=== PATIENT | male | born 1980 | race Hispanic/Latino ===

== ENCOUNTER 2019-12-11 12:37 | Emergency (ER) | payer OTHER ==
[2019-12-11] MEDS ORDERED: KETOROLAC 30 MG/ML INJ ONE (13:13)
[2019-12-11 13:25] LABS: Urine Blood TRACE (NEG); Urine Glucose NEGATIVE (NEG); Urine Protein NEGATIVE (NEG); Urine Specific Gravity 1.015 (1.005-1.030)
[2019-12-11 13:29] LABS: Urine Bacteria NONE SEEN /HPF (NONE SEEN); Urine Culture Reflex Order NOT NEEDED; Urine RBC <5 /HPF (NONE SEEN)
--- NOTE | 2019-12-11 13:53 | ER ---
Nurse's Notes [facility] Name: Justice Trevizo Age: 38 yrs Sex: Male : 1980 Arrival Date: 12/11/2019 Time: 12:39 Bed 16 Private MD: Diagnosis: Low back pain Presentation: 12/10 12:48 Chief complaint: Patient states: low back pain "for a while". Pt denies known injury, aa5 denies nausea/vomiting/diarrhea. 12:48 Coronavirus screen: Proceed with normal triage. Patient denies a cough. Patient denies aa5 shortness of breath or difficulty breathing. Patient denies measured and/or subjective temperature greater than 100.4F prior to today's visit. Patient denies travel on a cruise ship or to a country the [facility] currently lists as an affected area. Patient denies contact with known and/or suspected case of COVID-19. Ebola Screen: Patient negative for fever greater than or equal to 101.5 degrees Fahrenheit, and additional compatible Ebola Virus Disease symptoms. Initial Sepsis Screen: Does the patient meet any 2 criteria? No. Patient's initial sepsis screen is negative. Does the patient have a suspected source of infection? No. Patient's initial sepsis screen is negative. Risk Assessment: Do you want to hurt yourself or someone else? Patient reports no desire to harm self or others. Onset of symptoms was 2019. 12:48 Method Of Arrival: Ambulatory aa5 12:48 Acuity: ADELIA 3 aa5 Historical: - Allergies: 12:48 No Known Allergies; aa5 - Home Meds: 12:48 None [Active]; aa5 - PMHx: 12:48 None; aa5 - PSHx: 12:48 Appendectomy; aa5 - Immunization history:: Adult Immunizations unknown. - Social history:: Smoking status: Patient reports the use of cigarette tobacco products, smokes one pack cigarettes per day. Screenin:50 Abuse screen: Denies threats or abuse. Nutritional screening: No deficits noted. rb1 Tuberculosis screening: No symptoms or risk factors identified. Fall Risk None identified. Assessment: 12:50 General: Appears in no apparent distress. comfortable, Behavior is calm, cooperative. rb1 Pain: Complains of pain in low back Pain currently is 8 out of 10 on a pain scale. Pain began x one week. Neuro: Level of Consciousness is awake, alert, obeys commands, Oriented to person, place, time, situation, Denies numbness and tingling. Cardiovascular: Capillary refill < 3 seconds is brisk in bilateral fingers. Respiratory: Airway is patent Respiratory effort is even, unlabored, Respiratory pattern is regular, symmetrical. GI: No signs and/or symptoms were reported involving the gastrointestinal system. : Reports burning with urination. Derm: Skin is pink, warm \\T\\ dry. Musculoskeletal: Range of motion: intact in all extremities. 13:50 Reassessment: Patient appears in no apparent distress at this time. Patient and/or rb1 family updated on plan of care and expected duration. Pain level reassessed. Patient is alert, oriented x 3, equal unlabored respirations, skin warm/dry/pink. Vital Signs: 12:48 BP 138 / 96; Pulse 100; Resp 16 S; Temp 99.1(O); Pulse Ox 99% on R/A; Weight 83.91 kg aa5 (R); Height 5 ft. 11 in. (180.34 cm) (R); Pain 8/10; 13:48 BP 137 / 91; Pulse 89; Resp 17; Pulse Ox 100% on R/A; rb1 12:48 Body Mass Index 25.80 (83.91 kg, 180.34 cm) aa5 ED Course: 12:39 Patient arrived in ED. ag5 12:48 Randall Leon PA is PHCP. cp 12:48 Wilfrid Will MD is Attending Physician. cp 12:48 Arm band placed on Patient placed in an exam room, on a stretcher. aa5 12:50 Patient has correct armband on for positive identification. Bed in low position. Call rb1 light in reach. Side rails up X 1. Pulse ox on. NIBP on. 12:54 Becca Cade, RN is Primary Nurse. rb1 12:57 Triage completed. aa5 13:23 Urine collected: clean catch specimen, clear. ca1 14:18 No provider procedures requiring assistance completed. Patient did not have IV access rb1 during this emergency room visit. Administered Medications: 13:13 Drug: TORadol 60 mg Route: IM; Site: left gluteus; rb1 13:28 Follow up: Response: No adverse reaction rb1 Outcome: 13:53 Discharge ordered by . cp 14:18 Patient left the ED. rb1 14:18 Discharged to home ambulatory. rb1 14:18 Condition: stable 14:18 Discharge instructions given to patient, Instructed on discharge instructions, follow up and referral plans. medication usage, Demonstrated understanding of instructions, follow-up care, medications, Prescriptions given X 3. Signatures: Bettye Meléndez, RN RN aa5 Randall Leon PA PA cp Barber, Rebecca, RN RN rb1 Brianda Monsalve RN RN ca1 Simran Trevizo 5
--- NOTE | 2019-12-11 13:53 | EDPHYS ---
Physician Documentation [facility] Name: Justice Trevizo Age: 38 yrs Sex: Male : 1980 Arrival Date: 12/11/2019 Time: 12:39 Bed 16 Private MD: ED Physician Wilfrid Will HPI: 12/10 13:05 This 38 yrs old Male presents to ER via Ambulatory with complaints of Low Back cp Pain. 13:05 The patient presents with pain that is acute, with no known mechanism of injury. cp 13:05 The symptoms are located in the low back. The pain does not radiate. cp 13:05 Onset: The symptoms/episode began/occurred for weeks. cp 13:05 Associated signs and symptoms: Pertinent negatives: abdominal pain, chest pain, cp constipation, dysuria, fever, incontinence, numbness, tingling, urinary retention, weakness. Historical: - Allergies: 12:48 No Known Allergies; aa5 - Home Meds: 12:48 None [Active]; aa5 - PMHx: 12:48 None; aa5 - PSHx: 12:48 Appendectomy; aa5 - Immunization history:: Adult Immunizations unknown. - Social history:: Smoking status: Patient reports the use of cigarette tobacco products, smokes one pack cigarettes per day. ROS: 13:10 Constitutional: Negative for body aches, chills, fever, poor PO intake. cp 13:10 Eyes: Negative for injury, pain, redness, and discharge. cp 13:10 ENT: Negative for drainage from ear(s), ear pain, sore throat, difficulty swallowing, difficulty handling secretions. 13:10 Cardiovascular: Negative for chest pain, palpitations. 13:10 Respiratory: Negative for cough, shortness of breath, wheezing. 13:10 Abdomen/GI: Negative for abdominal pain, vomiting, diarrhea, constipation, bowel incontinence. 13:10 Back: Positive for pain at rest, pain with movement, of the low back. 13:10 : Negative for urinary symptoms, difficulty urinating, bladder incontinence, testicular pain 13:10 Neuro: Negative for gait disturbance, numbness, tingling, weakness. 13:10 All other systems are negative. Exam: 13:15 Constitutional: The patient appears in no acute distress, alert, awake, non-toxic, well cp developed, well nourished. 13:15 Head/Face: Normocephalic, atraumatic. cp 13:15 Eyes: Periorbital structures: appear normal, Conjunctiva: normal, no exudate, no cp injection, Sclera: no appreciated abnormality, Lids and lashes: appear normal, bilaterally. 13:15 ENT: External ear(s): are unremarkable, Nose: is normal, Mouth: Lips: moist, Oral mucosa: moist, Posterior pharynx: Airway: no evidence of obstruction, patent. 13:15 Neck: ROM/movement: is normal, is supple, without pain, no range of motions limitations. 13:15 Chest/axilla: Inspection: normal. 13:15 Cardiovascular: Rate: normal, Rhythm: regular. 13:15 Respiratory: the patient does not display signs of respiratory distress, Respirations: normal, no use of accessory muscles, labored breathing, is not present. 13:15 Abdomen/GI: Exam negative for discomfort, distension, guarding, Inspection: abdomen appears normal. 13:15 Back: pain, that is moderate, of the low back area, ROM is normal, Straight leg raises: of both lower extremities does not illicit pain. 13:15 Neuro: Motor: moves all fours, strength is normal, Sensation: is normal, Gait: is cp steady, at a normal pace, without difficulty, Deep tendon reflexes are 2+ (normal) in the right patellar, right Achilles, left patellar and left Achilles. Vital Signs: 12:48 BP 138 / 96; Pulse 100; Resp 16 S; Temp 99.1(O); Pulse Ox 99% on R/A; Weight 83.91 kg aa5 (R); Height 5 ft. 11 in. (180.34 cm) (R); Pain 8/10; 13:48 BP 137 / 91; Pulse 89; Resp 17; Pulse Ox 100% on R/A; rb1 12:48 Body Mass Index 25.80 (83.91 kg, 180.34 cm) aa5 MDM: 12:54 Patient medically screened. cp 13:20 Differential diagnosis: strain, sciatica, Herniated disc UTI. cp 13:52 Data reviewed: vital signs, nurses notes, lab test result(s), and as a result, I will cp discharge patient. 13:53 Counseling: I had a detailed discussion with the patient and/or guardian regarding: the cp historical points, exam findings, and any diagnostic results supporting the discharge/admit diagnosis, lab results, the need for outpatient follow up, a family practitioner, to return to the emergency department if symptoms worsen or persist or if there are any questions or concerns that arise at home. 12/10 13:00 Order name: Urine Microscopic Only; Complete Time: 13:31 cp 12/10 13:31 Interpretation: Reviewed. 12/10 13:21 Order name: Urine Dipstick--Ancillary (enter results); Complete Time: 13:27 eb 12/10 13:27 Interpretation: Normal except: UBLD TRACE. 12/10 13:00 Order name: Urine Dipstick-Ancillary (obtain specimen); Complete Time: 13:24 cp Administered Medications: 13:13 Drug: TORadol 60 mg Route: IM; Site: left gluteus; rb1 13:28 Follow up: Response: No adverse reaction rb1 Disposition: 15:06 Co-signature as Attending Physician, Wilfrid Will MD. rn Disposition: 12/11/19 13:53 Discharged to Home. Impression: Low back pain. - Condition is Stable. - Discharge Instructions: Back Pain, Adult, Back Exercises. - Prescriptions for Cyclobenzaprine 10 mg Oral Tablet - take 1 tablet by ORAL route every 8 hours As needed; 20 tablet. Tramadol 50 mg Oral Tablet - take 1 tablet by ORAL route every 8 hours as needed; 12 tablet. Medrol (Ankur) 4 mg Oral Tablets, Dose Pack - take 1 tablet by ORAL route as directed - follow package instructions; 1 packet. - Medication Reconciliation Form, Thank You Letter, Antibiotic Education, Prescription Opioid Use form. - Follow up: Private Physician; When: 2 - 3 days; Reason: Recheck today's complaints. - Problem is new. - Symptoms have improved. Signatures: Dispatcher [employer] EDWilfrid Cochran MD MD rn Calderon, Audri, RN RN aa5 Randall Leon PA PA cp Barber, Rebecca, RN RN rb1 Corrections: (The following items were deleted from the chart) 14:18 13:53 12/11/2019 13:53 Discharged to Home. Impression: Low back pain. Condition is rb1 Stable. Forms are Medication Reconciliation Form, Thank You Letter, Antibiotic Education, Prescription Opioid Use. Follow up: Private Physician; When: 2 - 3 days; Reason: Recheck today's complaints. Problem is new. Symptoms have improved. cp
[2019-12-11 14:34] VITALS: BP 138/96; TEMP 99.1; O2SAT 99
== END 2019-12-11 14:18 | disposition home or self-care (01) ==
LOC: ER 12:37
DX: M54.5 Low back pain (principal); F17.210 Nicotine dependence, cigarettes, uncomplicated
CPT/HCPCS: 81003; 81015; 96372; 99284

== ENCOUNTER 2020-10-29 17:46 | Emergency (ER) | payer OTHER, SELFPAY ==
--- OUTSIDE RECORDS SUMMARY | 2020-10-29 17:54 | XMS REPORT | Continuity of Care Document ---
:1980 Author Organization [facility] t Address [address] [place] [address] Care Team Providers Name Role Phone Arie HARGROVE Primary Care Physician Bev Juarez Attending Clinician Problems This patient has no known problems. Allergies, Adverse Reactions, Alerts This patient has no known allergies or adverse reactions. Social History Social Habit Start Date Stop Date Quantity Comments Source History of tobacco Cigarette Smoker [place] use Yarsanism Cigarettes smoked 2019-07-15 2019-07-15 [place] current (pack per 00:00:00 00:00:00 Method) - Reported Tobacco use and 2019-07-15 2019-07-15 Never used [place] exposure 00:00:00 00:00:00 Yarsanism Alcohol intake 2019-07-15 2019-07-15 Ex-drinker [place] 00:00:00 00:00:00 (finding) Yarsanism Sex [birth year] At [birth year] [place] 00:00:00 00:00:00 Yarsanism Smoking Status Start Date Stop Date Source Current every day smoker 2019-07-15 00:00:00 Higinio hernandez Yarsanism Medications This patient has no known medications. Procedures This patient has no known procedures. Encounters Start End Encounter Admission Attending Care Care Encounter Source Date/Time Date/Time Type Type Clinicians Facility Department ID 2020-06-27 2020-06-27 Emergency Margaret Patel [id number] 18:29:00 22:16:00 Bev Andrade [id number] [place] [id number] [place] [id number] Results This patient has no known results.
--- NOTE | 2020-10-29 21:56 | ER ---
Nurse's Notes [facility] Name: Justice Rubio Age: 39 yrs Sex: Male : 1980 Arrival Date: 10/29/2020 Time: 17:49 Bed External Waiting Private MD: Soni Sargent Diagnosis: Presentation: 10/29 17:58 Chief complaint: Patient states: Blurred vision for 2 days. Dizzy and MORALES all day today. ll1 No fever. Coronavirus screen: Client denies travel out of the [place] in the last 14 days. headache, nausea, Client presents with at least one sign or symptom that may indicate coronavirus-19. Standard/surgical mask placed on the client. Ebola Screen: Patient denies travel to an Ebola-affected area in the 21 days before illness onset. Initial Sepsis Screen: Does the patient meet any 2 criteria? HR > 90 bpm. No. Patient's initial sepsis screen is negative. Does the patient have a suspected source of infection? Yes: Other: MORALES. Risk Assessment: Do you want to hurt yourself or someone else? Patient reports no desire to harm self or others. Onset of symptoms was October 28, 2020. 17:58 Method Of Arrival: Ambulatory ll1 17:58 Acuity: ADELIA 3 ll1 Historical: - Allergies: 18:00 No Known Allergies; ll1 - PMHx: 18:00 None; ll1 - PSHx: 18:00 Appendectomy; ll1 - Immunization history:: Flu vaccine is not up to date. - Social history:: Smoking status: Patient reports the use of cigarette tobacco products, smokes one-half pack cigarettes per day. Vital Signs: 17:58 BP 138 / 98; Pulse 118; Resp 17; Temp 98.3; Pulse Ox 97% ; Weight 86.18 kg; Height 5 ll1 ft. 11 in. (180.34 cm); Pain 8/10; 17:58 Body Mass Index 26.50 (86.18 kg, 180.34 cm) ll1 ED Course: 17:49 Patient arrived in ED. mr 17:50 Soni Sargent is Private Physician. mr 18:00 Triage completed. ll1 18:01 Arm band placed on. ll1 21:16 Rambo Chang, RN is Primary Nurse. em 21:16 Andres Mike, MEET is PHCP. pm1 21:16 Alcon Conley MD is Attending Physician. pm1 Administered Medications: No medications were administered Outcome: : Patient left the ED. sg Signatures: Misha Ruelas RN RN Amira Qiu mr ChangRambo RN RN em Andres Mike, COAL PICKER COAL PICKER pm1 Lena Alston RN RN 1
[2020-10-29 22:29] VITALS: BP 138/98; TEMP 98.3; O2SAT 97
== END 2020-10-29 21:55 | disposition left against medical advice (07) ==
LOC: ER 17:46
DX: H53.8 Other visual disturbances (principal); Z53.21 Procedure and treatment not carried out due to patient leaving prior to being seen by health care provider
CPT/HCPCS: 99281

== ENCOUNTER 2021-01-21 20:54 | Emergency (ER) | payer OTHER ==
[2021-01-21 21:26] LABS: Urine Blood Negative (Negative); Urine Glucose Negative (Negative); Urine Protein Negative (Negative); Urine Specific Gravity >=1.030 (1.005-1.030)
[2021-01-21 21:29] LABS: Absolute Lymphocytes (CBC) 2.1 K/uL (0.7-4.9); Basophils % 0.7 % (0-1.3); Hematocrit 44.5 % (39.6-49.0); Lymphocytes % 31.2 % (15.3-44.8); MPV 7.7 fL (7.6-11.3); RBC Red Blood Cell Count 5.31 M/uL (4.33-5.43)
[2021-01-21] MEDS ORDERED: WATER FOR INJ,STERILE 10 ML ONE (21:30)
[2021-01-21] MEDS ORDERED: ZIPRASIDONE MESYLA 20 MG/VIAL IM ONE (21:30)
[2021-01-21 21:45] LABS: Barbiturates NEGATIVE (NEGATIVE); Benzodiazepines POSITIVE (NEGATIVE); Cocaine POSITIVE (NEGATIVE); METHAMPHETAM NEGATIVE (NEGATIVE); Methadone POSITIVE (NEGATIVE); Opiates NEGATIVE (NEGATIVE); Phencyclidine NEGATIVE (NEGATIVE); THC Cannibis NEGATIVE (NEGATIVE)
[2021-01-21 21:47] LABS: Protime INR 1.15
[2021-01-21 21:48] LABS: ALT/SGPT 19 U/L (12-78); AST/SGOT 11 U/L (15-37); Alkaline Phosphatase 52 U/L (45-117); BUN Blood Urea Nitrogen 17 mg/dL (7-18); Bicarbonate 31 mmol/L (21-32); Bilirubin Direct < 0.1 mg/dL (0-0.2); Bilirubin Total 0.3 mg/dL (0.2-1.0); Glucose Level 103 mg/dL (74-106); Potassium 4.4 mmol/L (3.5-5.1); Protein, Total 7.9 g/dL (6.4-8.2); Sodium Level 142 mmol/L (136-145)
[2021-01-21] MEDS ORDERED: NICOTINE 21 MG/PAT TD ONE (23:26)
[2021-01-22] MEDS ORDERED: ZIPRASIDONE MESYLA 20 MG/VIAL IM ONE (04:38)
[2021-01-22] MEDS ORDERED: LORazepam 2 MG/ML VIAL ONE ×2 (04:38→04:41)
[2021-01-22] MEDS ORDERED: DIPHENHYDRAMINE 50 MG/ML VIAL ONE (04:50)
--- NOTE | 2021-01-22 07:41 | ER ---
Nurse's Notes [facility] Name: Justice Rubio Age: 40 yrs Sex: Male : 1980 Arrival Date: 01/21/2021 Time: 21:04 Bed 17 Private MD: Diagnosis: Suicidal ideations;Cocaine abuse;Abuse of other non-psychoactive substances;Other chronic pain-Methadone Maintence;Major depressive disorder, recurrent Presentation: 01/21 21:04 Chief complaint: Pt BIB EMS/PD for c/o hearing voices and SI. Pt denies specific plan, ad5 ED hold placed on pt by PD at this time. Pt reports recent of his best friend trigger for current c/o. Coronavirus screen: At this time, the client does not indicate any symptoms associated with coronavirus-19. Ebola Screen: No symptoms or risks identified at this time. Initial Sepsis Screen: Does the patient meet any 2 criteria? HR > 90 bpm. Does the patient have a suspected source of infection? No. Patient's initial sepsis screen is negative. Risk Assessment: Do you want to hurt yourself or someone else? Patient reports desire/thoughts of hurting themselves or someone else. Provider notified. Onset of symptoms is unknown. 21:04 Method Of Arrival: EMS ad5 21:04 Acuity: ADELIA 2 ad5 Triage Assessment: 21:08 General: Appears in no apparent distress. Behavior is cooperative, agitated, anxious. ad5 Pain: Denies pain. Historical: - Allergies: 21:07 No Known Allergies; ad5 - Home Meds: 21:07 Methadone unknown dose Oral [Active]; ad5 - Immunization history:: Adult Immunizations unknown. - Social history:: Smoking status: unknown Patient uses alcohol. Screenin:45 Abuse screen: Denies threats or abuse. Nutritional screening: No deficits noted. ea Tuberculosis screening: No symptoms or risk factors identified. Fall Risk None identified. Assessment: 21:44 General: Appears in no apparent distress. Behavior is calm, cooperative, appropriate ea for age. Pain: Denies pain. Neuro: Level of Consciousness is awake, alert, obeys commands, Oriented to person, place, time. Cardiovascular: Patient's skin is warm and dry. Respiratory: Airway is patent Respiratory effort is even, unlabored, Respiratory pattern is regular, symmetrical. Derm: Skin is pink, warm \\T\\ dry. 22:00 Reassessment: Pt appears agitated, refusal to change into hospital gown at this time. ad5 Pt belongings placed in bag and at bedside. Pt reoriented to plan of care by this RN and coroner forensic technician. ok for pt to remain in clothing and allow eval/tx while in ED at this time. Pt agreeable to plan of care at this time. Sitter remains at bedside. Will continue to monitor. 22:30 Reassessment: Patient appears in no apparent distress at this time. No changes from ad5 previously documented assessment. Patient and/or family updated on plan of care and expected duration. Pain level reassessed. 23:30 Reassessment: Pt resting comfortably in stretcher, bed low and locked, bedrails x 1. ad5 informed of pt need for nicotine patch. Pt denies other needs or c/o at this time. Resp with ease. Continued protocols in place for reported SI. NAD noted, will continue to monitor. 23:45 Reassessment: Patient and/or family updated on plan of care and expected duration. Pain ea level reassessed. Pt speaking with brigitte gaitan spoke to provider reported pt should be seen in patient. 01/22 01:00 Reassessment: Patient appears in no apparent distress at this time. Patient and/or ad5 family updated on plan of care and expected duration. Pain level reassessed. Patient denies pain at this time. 02:33 Reassessment: Patient and/or family updated on plan of care and expected duration. Pain ea level reassessed. Pt resting with eyes closed, respirations even and unlabored. Chest expansions even and symmetrical. 03:30 Reassessment: Patient and/or family updated on plan of care and expected duration. Pain ea level reassessed. Spoke with Brigette from [facility] gave nurse to nurse. 03:59 Reassessment: Spoke with Arianna at [facility], questions/concerns ad5 addressed. Arianna to call back regarding pt Covid test results prior to acceptance. 04:06 Reassessment: Patient and/or family updated on plan of care and expected duration. Pain ea level reassessed. Pt reported he was going to leave, states "I didn't hurt anyone and I am not staying here, I am not a criminal". Pt demanded IV be removed. PD called to facility. Pt stated " I am not going to stay they can arrest me". Pt became belligerent. Pushed ED staff out of the way. Pt left ED. 04:30 Reassessment: Pt back to room 17 in ED with PD escort. PD remains at bedside with RN x ad5 2 and coroner forensic technician. MD to bedside, pt again informed of ED hold and reoriented to plan of care. Pt changed into hospital gown at this time, belongings secured. Pt positioned for comfort in ED stretcher, warm blanket provided. Pt received IM medication at this time d/t increased agitation per MD orders. Sitter remains at bedside. Will continue to monitor. 05:30 Reassessment: Pt resting comfortably in ED stretcher with eyes closed, arouses to ad5 minimal stimuli. Resp even/unlabored. Bed low and locked, bedrails x 1. Sitter remains at bedside. NAD noted, will continue to monitor. 07:00 Reassessment: Patient appears in no apparent distress at this time. Patient and/or jd3 family updated on plan of care and expected duration. Pain level reassessed. pt resting in bed with even and unlabored respirations, appears comfortable with no signs of pain or distress at this time. sitter at bedside. Pain: Denies pain. Neuro: Level of Consciousness is awake, alert, obeys commands, Oriented to person, place, time. Cardiovascular: Patient's skin is warm and dry. Respiratory: Airway is patent Respiratory effort is even, unlabored, Respiratory pattern is regular, symmetrical. Derm: Skin is intact, Skin is dry, Skin is normal, Skin temperature is warm. 08:00 Reassessment: Patient appears in no apparent distress at this time. Patient and/or jd3 family updated on plan of care and expected duration. Pain level reassessed. Patient is alert, oriented x 3, equal unlabored respirations, skin warm/dry/pink. 08:26 Reassessment: diet tray offered to pt. pt reported to want to sleep. tray left on jd3 counter next bed when pt is wanting to eat. 09:00 Reassessment: Patient appears in no apparent distress at this time. Patient and/or jd3 family updated on plan of care and expected duration. Pain level reassessed. Patient is alert, oriented x 3, equal unlabored respirations, skin warm/dry/pink. Vital Signs: 06/14 21:04 BP 126 / 90; Pulse 105; Resp 18; Temp 97.8; Pulse Ox 100% on R/A; Weight 89.81 kg; ad5 Height 5 ft. 11 in. (180.34 cm); Pain 0/10; 21:04 Body Mass Index 27.62 (89.81 kg, 180.34 cm) ad5 ED Course: 21:04 Patient arrived in ED. ad5 21:05 Jaxon Randall MD is Attending Physician. tw4 21:07 Triage completed. ad5 21:08 Arya Rodrigez is Primary Nurse. ad5 21:11 Inserted saline lock: 22 gauge in right antecubital area, using aseptic technique. mb4 21:11 Initial lab(s) drawn, by me, sent to lab. mb4 21:44 Patient has correct armband on for positive identification. Bed in low position. mb4 21:45 Diet: Patient given snack. mb4 22:31 Warm blanket given. Verbal reassurance given. mb4 23:36 Called out [facility] Screener to evaluate the patient. ar5 0615 07:00 Arm band placed on. jd3 07:15 Dr Car[address]al giving DR to report to Dr. Sherman Rodríguez with [facility]. ak 07:30 Attending Physician role handed off by Jaxon Randall MD [facility] 07:30 Randall Carvajal MD is Attending Physician. [facility] 08:05 Admin approval given by Christiano You at [facility]. mt 08:34 called Judge Cruz's office for transfer warrant order signatures, respiratory assistant stated she ak will text him and call us back. 08:45 faxed transfer warrant order forms to Judge Cruz at [phone]. mt 09:07 received fax from Judge Cruz, called [facility] to request transport from [facility] [place]. 09:25 Emma Ross called to notify us that he is on a different call and will be a while mt before he can transport this patient. 09:57 Primary Nurse role handed off by Arya Rodrigez vg1 09:57 Lyn Hubbard, RN is Primary Nurse. vg1 Administered Medications: 01/21 21:20 Drug: Geodon (ziprasidone) 20 mg Route: IM; Site: right deltoid; ad5 23:34 Follow up: Response: No adverse reaction ad5 23:35 Drug: Nicotine 21 mg/24 hr 1 patches {Note: R upper/outer arm.} Route: Transdermal; ad5 Site: affected area; 01/22 03:19 Follow up: Response: No adverse reaction ad5 04:30 Drug: Ativan (LORazepam) 4 mg Route: IM; Site: left deltoid; ea 06:01 Follow up: Response: No adverse reaction; Anxiety decreased ad5 04:30 Drug: Benadryl (diphenhydrAMINE) 50 mg Route: IM; Site: left deltoid; ea 06:01 Follow up: Response: No adverse reaction ad5 04:31 Drug: Geodon (ziprasidone) 10 mg Route: IM; Site: right deltoid; ea 06:01 Follow up: Response: No adverse reaction; Anxiety decreased ad5 Outcome: 07:40 ER care complete, transfer ordered by . zaire 10:38 Patient left the ED. vg1 Signatures: Randall Carvajal MD MD cha Thompson, Moriah mt Antunez, Elena, RN RN ea Davies, Jonathon, RN RN jd3 Wadley, Terrence, MD MD tw4 Lydia Orourke 4 Ella Pedraza ar5 Lyn Hubbard RN RN vg1 Arya Rodrigez ad5 Corrections: (The following items were deleted from the chart) 04:15 04:06 Reassessment: Patient and/or family updated on plan of care and expected ea duration. Pain level reassessed. Pt reported he was going to leave, states "I didn't hurt anyone and I am not staying here, I am not a criminal". Pt demanded IV be removed. PD called to facility. Pt stated " I am not going to stay they can arrest me". ea 08:02 08:[address]al giving DR betzy HOFFMAN report to Dr. Sherman Rodríguez with [facility] 08:07 07:15 [address] Carvajal giving DR betzy HOFFMAN report to Dr. Sherman Rodríguez with [facility]
--- NOTE | 2021-01-22 07:41 | EDPHYS ---
Physician Documentation [facility] Name: Justice Rubio Age: 40 yrs Sex: Male : 1980 Arrival Date: 01/21/2021 Time: 21:04 Bed 17 Private MD: ED Physician Randall Carvajal HPI: 01/22 01:03 This 40 yrs old Male presents to ER via EMS with complaints of SUICIDSAL tw4 IDEATION. 01:03 The patient presents to the emergency department with suicide ideation, and the patient tw4 has a plan. Onset: The symptoms/episode began/occurred today. Past psychiatric history: Prior diagnosis: depression, schizophrenia. Associated signs and symptoms: The patient has no apparent associated signs or symptoms. Severity of symptoms: At their worst the symptoms were moderate in the emergency department the symptoms are unchanged. The patient has not experienced similar symptoms in the past. Historical: - Allergies: 01/21 21:07 No Known Allergies; ad5 - Home Meds: 21:07 Methadone unknown dose Oral [Active]; ad5 - Immunization history:: Adult Immunizations unknown. - Social history:: Smoking status: unknown Patient uses alcohol. ROS: 01/22 01:03 Constitutional: Negative for fever, chills, and weight loss, Eyes: Negative for injury, tw4 pain, redness, and discharge, Cardiovascular: Negative for chest pain, palpitations, and edema, Respiratory: Negative for shortness of breath, cough, wheezing, and pleuritic chest pain, Abdomen/GI: Negative for abdominal pain, nausea, vomiting, diarrhea, and constipation, Back: Negative for injury and pain, MS/Extremity: Negative for injury and deformity, Skin: Negative for injury, rash, and discoloration, Neuro: Negative for headache, weakness, numbness, tingling, and seizure. Psych: Positive for auditory hallucinations, suicidal ideation. Exam: 01:03 Constitutional: This is a well developed, well nourished patient who is awake, alert, tw4 and in no acute distress. Head/Face: Normocephalic, atraumatic. Chest/axilla: Normal chest wall appearance and motion. Nontender with no deformity. No lesions are appreciated. Cardiovascular: Regular rate and rhythm with a normal S1 and S2. No gallops, murmurs, or rubs. Normal PMI, no JVD. No pulse deficits. Respiratory: Lungs have equal breath sounds bilaterally, clear to auscultation and percussion. No rales, rhonchi or wheezes noted. No increased work of breathing, no retractions or nasal flaring. Abdomen/GI: Soft, non-tender, with normal bowel sounds. No distension or tympany. No guarding or rebound. No evidence of tenderness throughout. 08:19 ECG was reviewed by the Attending Physician. zaire Vital Signs: 01/21 21:04 BP 126 / 90; Pulse 105; Resp 18; Temp 97.8; Pulse Ox 100% on R/A; Weight 89.81 kg; ad5 Height 5 ft. 11 in. (180.34 cm); Pain 0/10; 21:04 Body Mass Index 27.62 (89.81 kg, 180.34 cm) ad5 MDM: 01/22 01:24 Data reviewed: nurses notes, EMS record. Counseling: I had a detailed discussion with [facility] the patient and/or guardian regarding: the historical points, exam findings, and any diagnostic results supporting the discharge/admit diagnosis. Awaiting: Psychiatric rapid outsole stitcher. 07:30 Patient medically screened. zaire 07:41 Differential diagnosis: drug withdrawal. acute psychotic break, depression, psychosis zaire secondary to non-compliance. Data interpreted: library monitor: rate is 105 beats/min, rhythm is regular, Pulse oximetry: on room air is 100 %. Test interpretation: by ED physician or midlevel provider: ECG. 01/21 21:05 Order name: Acetaminophen [facility] 01/21 21:05 Order name: Basic Metabolic Panel [facility] 01/21 21:05 Order name: CBC with Diff; Complete Time: 07:[address] [facility] 01/21 21:05 Order name: ETOH Level; Complete Time: 07:[address] [facility] 01/21 21:05 Order name: Hepatic Function; Complete Time: 07:[address] [facility] 01/21 21:05 Order name: PT-INR; Complete Time: 07:[address] [facility] 01/21 21:05 Order name: Ptt, Activated; Complete Time: 07:[address] [facility] 01/21 21:05 Order name: Salicylate; Complete Time: 07:[address] [facility] 01/21 21:05 Order name: Urine Drug Screen; Complete Time: 07:[address] [facility] 01/21 21:06 Order name: Acetaminophen Level; Complete Time: 07:33 EDMS 01/21 21:06 Order name: Basic Metabolic Panel; Complete Time: 07:33 EDMS 01/21 21:26 Order name: Urine Dipstick-Ancillary; Complete Time: 07:33 EDMS 01/22 05:09 Order name: SARS-COV-2 RT PCR; Complete Time: 07:33 EDMS 01/21 21:05 Order name: Suicide Precautions; Complete Time: 23:37 tw4 01/21 21:05 Order name: EKG; Complete Time: 21:06 tw4 01/21 21:05 Order name: EKG - Nurse/Tech; Complete Time: 23:37 tw4 01/21 21:05 Order name: IV Saline Lock; Complete Time: 23:37 tw4 01/21 21:05 Order name: Labs collected and sent; Complete Time: 23:37 tw4 01/21 21:05 Order name: Suicide Screening ([place]); Complete Time: 23:37 tw4 01/21 21:05 Order name: Urine Dipstick-Ancillary (obtain specimen); Complete Time: 23:37 tw4 01/22 07:13 Order name: Diet Finger Food; Complete Time: 07:13 jd3 EC:50 Rhythm is regular. QRS [place] is Normal. IN interval is normal. QRS interval is normal. tw4 QT interval is normal. No Q waves. T waves are Normal. No ST changes noted. Clinical impression: Sinus tachycardia. Interpreted by me. Reviewed by me. 08:19 Rate is 103 beats/min. Rhythm is regular. QRS [place] is Normal. IN interval is normal. zaire QRS interval is normal. QT interval is normal. No Q waves. T waves are Normal. No ST changes noted. Clinical impression: Sinus tachycardia and No evidence of ischemia. Interpreted by me. Reviewed by me. Administered Medications: 01/21 21:20 Drug: Geodon (ziprasidone) 20 mg Route: IM; Site: right deltoid; ad5 23:34 Follow up: Response: No adverse reaction ad5 23:35 Drug: Nicotine 21 mg/24 hr 1 patches {Note: R upper/outer arm.} Route: Transdermal; ad5 Site: affected area; 01/22 03:19 Follow up: Response: No adverse reaction ad5 04:30 Drug: Ativan (LORazepam) 4 mg Route: IM; Site: left deltoid; ea 06:01 Follow up: Response: No adverse reaction; Anxiety decreased ad5 04:30 Drug: Benadryl (diphenhydrAMINE) 50 mg Route: IM; Site: left deltoid; ea 06:01 Follow up: Response: No adverse reaction ad5 04:31 Drug: Geodon (ziprasidone) 10 mg Route: IM; Site: right deltoid; ea 06:01 Follow up: Response: No adverse reaction; Anxiety decreased ad5 Disposition: 01/22/21 07:40 Transfer ordered to Psych Facility. Diagnosis are Suicidal ideations, Cocaine abuse, Abuse of other non-psychoactive substances, Other chronic pain - Methadone Maintence, Major depressive disorder, recurrent. - Reason for transfer: Higher level of care. - Accepting physician is to Dr Marcos Smiley. - Condition is Stable. - Problem is new. - Symptoms have improved. Signatures: Dispatcher [employer] EDID Randall Carvajal MD MD cha Antunez, Elena, RN RN Jaxon Anderson MD MD tw4 Lyn Hubbard RN RN vg1 Arya Rodrigez ad5 Corrections: (The following items were deleted from the chart) 03:36 03:22 CORONAVIRUS+MR.LAB.BRZ ordered. [facility] EDID 10:38 07:40 01/22/2021 07:40 Transfer ordered to Psych Facility. Diagnosis is Suicidal vg1 ideations; Cocaine abuse; Abuse of other non-psychoactive substances; Other chronic pain - Methadone Maintence; Major depressive disorder, recurrent. Reason for transfer: Higher level of care. Accepting physician is to Dr Marcos Smiley. Condition is Stable. Problem is new. Symptoms have improved. zaire
--- NOTE | 2021-01-22 10:27 | EKG ---
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
[2021-01-22 10:47] VITALS: BP 126/90; TEMP 97.8; O2SAT 100
== END 2021-01-22 10:38 ==
LOC: ER 20:54
DX: F14.10 Cocaine abuse, uncomplicated (principal); F55.8 Abuse of other non-psychoactive substances; F33.9 Major depressive disorder, recurrent, unspecified; G89.29 Other chronic pain; Z20.822 Contact with and (suspected) exposure to COVID-19
CPT/HCPCS: 93005; 85025; 80048; 36415; 80320; 80329 ×2; 85610; 80076; 80307 ×8; 85730; 81003; U0003; J1200; J3486 ×2

== ENCOUNTER 2022-02-04 04:49 | Emergency (ER) | payer OTHER ==
--- OUTSIDE RECORDS SUMMARY | 2022-02-04 04:52 | XMS REPORT | Continuity of Care Document ---
:1980 Author Organization [facility] t Address [address] [place] [address] Dr. [address] [place] [address] Care Team Providers Name Role Phone Pcp, Does Not Have A Primary Care Physician Richard PIERRE Attending Clinician Melchor BARNEY Attending Clinician MELCHOR Attending Clinician Unavailable JADEN Attending Clinician Unavailable Jaden PIERER Attending Clinician Jose David MOYA Attending Clinician Unavailable Jimmy Juarez Attending Clinician JIMMY FRANZ Attending Clinician Unavailable Payers Payer Name Policy Type Policy Number Effective Date Expiration Date Bridget LAZARO II [id number] 2019 00:00:00 Problems Condition Condition Condition Status Onset Resolution Last Treating Co mments Source Name Details Category Date Date Treatment Clinician Date No known No known Disease Unive rs active active ity of problems problems [facility] Allergies, Adverse Reactions, Alerts Allergy Allergy Status Severity Reaction(s) Onset Inactive Treating Comm ents Source Name Type Date Date Clinician NO KNOWN Drug Active Univers ALLERGIE Class ity of S [facility] Social History Social Habit Start Date Stop Date Quantity Comments Source Exposure to 2021-12-29 2022-01-08 Not sure [facility] SARS-CoV-2 (event) 00:00:00 11:26:00 Medica l Branch Tobacco use and 2021-05-18 2021-05-18 Never used [facility] [place] exposure 00:00:00 00:00:00 Medical Branch Sex Ass[birth year] At [birth year] [facility] [place] 00:00:00 00:00:00 Medical Branch Smoking Status Start Date Stop Date Source Current every day smoker 2021-05-18 00:00:00 [facility] [place] [facility] [place] Medications Ordered Filled Start Stop Current Ordering Indication Dosage Frequency Signature Comments Components Source Medication Medication Date Date Medication? Clinician (SIG) Name Name ondansetron 2021- No [id number] 4mg U nivers (ZOFRAN-ODT 01-08 ity of ) 17:45: 16:45 [place] disintegrat 00 :00 Medical ing tablet Branch 4 mg ondansetron 2021- No [id number] 4mg 4 mg, Univers (ZOFRAN-ODT 01-08 Oral, ity of ) 17:45: 16:45 ONCE, 1 [place] disintegrat 00 :00 dose, On Medi debbie ing tablet 01/08/22 Bra nch 4 mg at 1245, Routine ondansetron Yes [id number] 4mg Take 1 Univers 4 mg - tablet by ity of disintegrat 00:00: mouth [place] ing tablet 00 every 8 Medica l (eight) Branch hours as needed for Nausea and Vomiting (N/V). ESCITALOPRA 2020-08 Yes Take by Un irais M OXALATE 0-14 mouth ity of (LEXAPRO 15:25: daily. [place] ORAL) Medical Branch buprenorphi 2020-[address] 8 mg Univers ne 0-14 under the ity of HCl/naloxon 15:25: tongue. [place] as e HCl Medical (SUBOXONE Branch SL) ESCITALOPRA 2020-08 Yes Take by Un irais M OXALATE 0-14 mouth ity of (LEXAPRO 15:25: daily. [place] ORAL) Medical Branch buprenorphi 2020-[address] 8 mg Univers ne 0-14 under the ity of HCl/naloxon 15:25: tongue. [place] as e HCl Medical (SUBOXONE Branch SL) lisinopriL 2020-08 Yes One Tab Uni vers 5 mg tablet 0-13 po each ity o f 00:00: day for [place] 00 Blood Medical pressure Branch lisinopriL 2020-08 Yes One Tab Uni vers 5 mg tablet 0-13 po each ity o f 00:00: day for [place] 00 Blood Medical pressure Branch METHADONE 2020-08 Yes Take by Univ ers HCL 0-09 mouth ity of (METHADONE 13:46: daily. [place] ORAL) 56 Medical Branch METHADONE 2020-08 Yes Take by Univ ers HCL 0-09 mouth ity of (METHADONE 13:46: daily. [place] ORAL) 56 Medical Branch Vital Signs Vital Name Observation Time Observation Value Comments Source Systolic blood 2022-01-08 16:36:00 127 mm[Hg] Univer sity of pressure [facility] Diastolic blood 2022-01-08 16:36:00 75 mm[Hg] Unive rsity of pressure [facility] Heart rate 2022-01-08 16:36:00 81 /min Universi ty of [facility] Body temperature 2022-01-08 16:36:00 36.56 [facility] [place] [facility] Respiratory rate 2022-01-08 16:36:00 18 /min Univ ersity [facility] Body height 2022-01-08 16:36:00 180.3 cm Universi ty of [facility] Body weight 2022-01-08 16:36:00 82.736 kg Universi ty of [facility] BMI 2022-01-08 16:36:00 25.44 kg/m2 Universi ty [facility] Oxygen saturation in 2022-01-08 16:36:00 96 /min University Arterial blood by [facility] Pulse oximetry Branch Systolic blood 2021-05-23 20:22:00 120 mm[Hg] Univer sity of pressure [facility] Diastolic blood 2021-05-23 20:22:00 80 mm[Hg] Unive rsity of [facility] Heart rate 2021-05-23 20:22:00 103 /min Universi ty of [facility] Respiratory rate 2021-05-23 20:22:00 22 /min Univ ersity [facility] Body height 2021-05-23 20:22:00 180.3 cm Universi ty of [facility] Body weight 2021-05-23 20:22:00 89.132 kg Universi ty of [facility] BMI 2021-05-23 20:22:00 27.41 kg/m2 Universi ty [facility] Oxygen saturation in 2021-05-23 20:22:00 96 /min University of Arterial blood by [facility] Pulse oximetry Branch Procedures This patient has no known procedures. Encounters Start End Encounter Admission Attending Care Care Encounter Source Date/Time Date/Time Type Type Clinicians Facility Department ID 2022-01-08 2022-01-08 Urgent Argenis Ramos [facility] [id number] Univers 11:40:00 12:00:00 Care [place] [id number] [id number] [place]tan as BOSSMAN?BLEA [id number] Dc dical KNEY [address] [facility] 2022-01-08 2022-01-08 Outpatient R [facility] [id number] Univers 11:40:00 11:40:00 [id number] ity [facility] 2022-01-08 2022-01-08 [facility] [id number] Univers 11:40:00 [facility]40[facility] 2021-06-10 2021-06-10 Outpatient R [facility] [id number] Univers 14:00:00 14:00:00 CHAPARRO [facility] 2021-06-10 2021-06-10 Outpatient R [facility] [id number] Univers 14:00:00 14:00:00 [facility] [id number] [facility] 2021-05-23 2021-05-23 Office [facility] [id number] Univers 15:00:40 15:48:35 [id number] [id number] [id number] Dc dical dinorah 059 Branch Building 2021-05-23 2021-05-23 [facility] [id number] Univers 14:40:00 14:40:00 CHAPARRO [id number] ity o [facility] 2021-05-23 2021-05-23 [facility] [id number] Univers 14:40:00 14:40:00 CHAPARRO leosrichard schmitz anne-marie [facility] 2021-05-18 2021-05-18 Outpatient R GRIFFIN, [facility] [id number] Univers 13:40:00 13:40:00 DENISE eugene ainsley xie [facility] 2020-06-27 2020-06-27 Emergency Margaret Franz [facility] [id number] 18:29:00 22:16:00 Jimmy Andrade [id number] [facility] [id number] [place] [id number] 2020-06-27 2020-06-27 Emergency X Margaret FRANZ [facility] ERT [id number] Univers 18:29:00 18:29:00 [facility] [place] [facility] Results This patient has no known results.
[2022-02-04] MEDS ORDERED: ACETAMINOPHEN 500 MG TAB ONE (05:29)
--- NOTE | 2022-02-04 06:58 | EDPHYS ---
Physician Documentation [facility] Name: Justice Rubio Age: 41 yrs Sex: Male : 1980 Arrival Date: 02/04/2022 Time: 04:53 Bed 13 Private MD: ED Physician Teja Amato HPI: 02/04 19:14 This 41 yrs old Male presents to ER via Ambulatory with complaints of Fever, kdr Headache. 19:14 The patient reports fever, not measured (subjective). Onset: The symptoms/episode kdr began/occurred today. Modifying factors: there are no obvious modifying factors. Associated signs and symptoms: Pertinent positives: arthralgias, headache, myalgias, night sweats. Severity of symptoms: At their worst the symptoms were mild today, in the emergency department the symptoms are unchanged. The patient has not experienced similar symptoms in the past. The patient has not recently seen a physician. Historical: - Allergies: 05:10 No Known Allergies; ke1 - PMHx: 05:10 None; ke1 - PSHx: 05:10 Appendectomy; ke1 - Immunization history:: Client reports receiving the Vitor \\T\\ Vitor single-dose vaccine. - Social history:: Smoking status: Patient reports the use of cigarette tobacco products, smokes one pack cigarettes per day. ROS: 19:14 Constitutional: Negative for weight loss - patient has had fever and chills Eyes: kdr Negative for injury, pain, redness, and discharge, ENT: Negative for injury, pain, and discharge, Neck: Negative for injury, pain, and swelling, Cardiovascular: Negative for chest pain, palpitations, and edema, Respiratory: Negative for shortness of breath, cough, wheezing, and pleuritic chest pain, Abdomen/GI: Negative for abdominal pain, nausea, vomiting, diarrhea, and constipation, Back: Negative for injury and pain, : Negative for injury, bleeding, discharge, and swelling, Skin: Negative for injury, rash, and discoloration, Neuro: Negative for headache, weakness, numbness, tingling, and seizure activity. Psych: Negative for depression, anxiety, suicide ideation, homicidal ideation, and hallucinations, Allergy/Immunology: Negative for hives, rash, and allergies, Endocrine: Negative for neck swelling, polydipsia, polyuria, polyphagia, and marked weight changes, Hematologic/Lymphatic: Negative for swollen nodes, abnormal bleeding, and unusual bruising. 19:14 MS/extremity: Positive for Patient has been experiencing arthralgias and myalgias since onset. Exam: 19:14 Constitutional: This is a well developed, well nourished patient who is awake, alert, kdr and in no acute distress. Head/Face: Normocephalic, atraumatic. Eyes: Pupils equal round and reactive to light, extra-ocular motions intact. Lids and lashes normal. Conjunctiva and sclera are non-icteric and not injected. Cornea within normal limits. Periorbital areas with no swelling, redness, or edema. Neck: Trachea midline, no thyromegaly or masses palpated, and no cervical lymphadenopathy. Supple, full range of motion without nuchal rigidity, or vertebral point tenderness. No Meningismus. Chest/axilla: Normal chest wall appearance and motion. Nontender with no deformity. No lesions are appreciated. Cardiovascular: Regular rate and rhythm with a normal S1 and S2. No gallops, murmurs, or rubs. Normal PMI, no JVD. No pulse deficits. Respiratory: Lungs have equal breath sounds bilaterally, clear to auscultation and percussion. No rales, rhonchi or wheezes noted. No increased work of breathing, no retractions or nasal flaring. Abdomen/GI: Soft, non-tender, with normal bowel sounds. No distension or tympany. No guarding or rebound. No evidence of tenderness throughout. Back: No spinal tenderness. No costovertebral tenderness. Full range of motion. Skin: Warm, dry with normal turgor. Normal color with no rashes, no lesions, and no evidence of cellulitis. MS/ Extremity: Pulses equal, no cyanosis. Neurovascular intact. Full, normal range of motion. Neuro: Awake and alert, GCS 15, oriented to person, place, time, and situation. Cranial nerves II-XII grossly intact. Motor strength 5/5 in all extremities. Sensory grossly intact. Cerebellar exam normal. Normal gait. Psych: Awake, alert, with orientation to person, place and time. Behavior, mood, and affect are within normal limits. Vital Signs: 05:07 BP 137 / 79; Pulse 108; Resp 19; Temp 98.5(O); Pulse Ox 100% on R/A; Weight 81.65 kg; ke1 Height 5 ft. 11 in. (180.34 cm); Pain 9/10; 07:48 BP 111 / 69; Pulse 85; Resp 17; Pulse Ox 100% ; ll1 08:25 BP 106 / 70; Pulse 80; Resp 16; Pulse Ox 100% ; ll1 05:07 Body Mass Index 25.10 (81.65 kg, 180.34 cm) ke1 MDM: 06:57 Patient medically screened. kdr 19:14 Data reviewed: vital signs, nurses notes, lab test result(s). Counseling: I had a kdr detailed discussion with the patient and/or guardian regarding: the historical points, exam findings, and any diagnostic results supporting the discharge/admit diagnosis, lab results, the need for outpatient follow up. 02/04 05:15 Order name: Flu; Complete Time: 06:38 ke1 02/04 05:17 Order name: COVID-19 SARS RT PCR (Document "Date of Onset" if Symptomatic); Complete mw2 Time: 06:50 Administered Medications: 05:20 Drug: Tylenol 1000 mg Route: PO; ke1 06:09 Follow up: Response: Pain is decreased ke1 07:26 Drug: bebtelovimah 1 vials Route: IV; Rate: bolus; Site: right antecubital; ll1 07:49 Follow up: Response: No adverse reaction; RASS: Alert and Calm (0); IV Status: ll1 Completed infusion; IV Intake: 2ml Disposition Summary: 02/04/22 06:57 Discharge Ordered Location: Home kdr Problem: new kdr Symptoms: have improved kdr Condition: Stable kdr Diagnosis - SARS-associated coronavirus as the cause of diseases classified elsewhere kdr Followup: kdr - With: Private Physician - When: 2 - 3 days - Reason: If symptoms return, Further diagnostic work-up, Recheck today's complaints, Continuance of care, Re-evaluation by your physician Discharge Instructions: - Discharge Summary Sheet kdr - COVID-19 kdr - Things to Know about the COVID-19 Pandemic - [facility] kdr - 10 Things You Can Do to Manage Your COVID-19 Symptoms at Home - [facility] kdr - Viral Illness, Adult kdr - COVID-19: Quarantine vs. Isolation - [facility] kdr - Prevent the Spread of COVID-19 if You Are Sick - [facility] kdr - Form - Return To Work kj1 - Form - Excuse from Work, School, or Physical Activity kj1 Forms: - Medication Reconciliation Form kdr - Thank You Letter kdr - Work release form kj1 Signatures: Dispatcher [employer] Teja Patel MD MD kdr Ballard, Brenda RN RN Lena Barcenas RN RN ll1 Perla Saucedo RN RN ke1
--- NOTE | 2022-02-04 06:58 | ER ---
Nurse's Notes [facility] Name: Justice Rubio Age: 41 yrs Sex: Male : 1980 Arrival Date: 02/04/2022 Time: 04:53 Bed 13 Private MD: Diagnosis: SARS-associated coronavirus as the cause of diseases classified elsewhere Presentation: 02/04 05:07 Chief complaint: Patient states: I woke up at 2 am with headache and sweat, i have been ke1 close to people who have covid. Coronavirus screen: Vaccine status: Patient reports receiving the 1st dose of the Covid vaccine. J\\T\\J. Ebola Screen: No symptoms or risks identified at this time. Initial Sepsis Screen: Does the patient meet any 2 criteria? No. Patient's initial sepsis screen is negative. Does the patient have a suspected source of infection? No. Patient's initial sepsis screen is negative. Risk Assessment: Do you want to hurt yourself or someone else? Patient reports no desire to harm self or others. Onset of symptoms was February 04, 2022 at 02:00. 05:07 Method Of Arrival: Ambulatory ke 05:07 Acuity: ADELIA 3 ke1 Triage Assessment: 05:11 Headache History: Denies prior headaches. General: Appears uncomfortable, Behavior is ke1 appropriate for age. Pain: Pain currently is 10 out of 10 on a pain scale. Pain began 3 hours ago. Also complains of inability to concentrate. Neuro: [place]egas Agitation-Sedation Scale (RASS): 0 - Alert and Calm Level of Consciousness is awake, alert, Oriented to person, place, time, situation. 05:36 EENT:. Respiratory: Respiratory effort is even, unlabored, Respiratory pattern is ke1 regular, symmetrical. Musculoskeletal: No deficits noted. Historical: - Allergies: 05:10 No Known Allergies; ke1 - PMHx: 05:10 None; ke1 - PSHx: 05:10 Appendectomy; ke1 - Immunization history:: Client reports receiving the Vitor \\T\\ Vitor single-dose vaccine. - Social history:: Smoking status: Patient reports the use of cigarette tobacco products, smokes one pack cigarettes per day. Screenin:11 Abuse screen: Denies threats or abuse. Nutritional screening: No deficits noted. ke1 Tuberculosis screening: No symptoms or risk factors identified. Fall Risk None identified. Assessment: 06:09 Reassessment: Patient appears in no apparent distress at this time. ke1 07:03 Reassessment: Report received from commercial service technician RN.. ll1 07:35 Reassessment: No changes from previously documented assessment. Patient and/or family ll1 updated on plan of care and expected duration. Pain level reassessed. Patient is alert, oriented x 3, equal unlabored respirations, skin warm/dry/pink. 08:25 Reassessment: No changes from previously documented assessment. Patient and/or family ll1 updated on plan of care and expected duration. Pain level reassessed. Patient is alert, oriented x 3, equal unlabored respirations, skin warm/dry/pink. Pain: Denies pain. Vital Signs: 05:07 BP 137 / 79; Pulse 108; Resp 19; Temp 98.5(O); Pulse Ox 100% on R/A; Weight 81.65 kg; ke1 Height 5 ft. 11 in. (180.34 cm); Pain 9/10; 07:48 BP 111 / 69; Pulse 85; Resp 17; Pulse Ox 100% ; ll1 08:25 BP 106 / 70; Pulse 80; Resp 16; Pulse Ox 100% ; ll1 05:07 Body Mass Index 25.10 (81.65 kg, 180.34 cm) ke1 ED Course: 04:53 Patient arrived in ED. ja2 05:07 Perla Saucedo, MICKIE is Primary Nurse. ke1 05:10 Triage completed. ke1 05:12 Arm band placed on right wrist. ke1 05:34 Bed in low position. Call light in reach. ke1 05:36 COVID-19 SARS RT PCR (Document "Date of Onset" if Symptomatic) Sent. ke1 05:36 Flu Sent. ke1 06:38 Teja Amato MD is Attending Physician. kdr 06:48 Droplet isolation initiated. ke1 07:05 Inserted saline lock: 22 gauge in right antecubital area, using aseptic technique. ll1 Blood collected. 08:25 No provider procedures requiring assistance completed. Patient did not have IV access ll1 during this emergency room visit. intact, bleeding controlled, No redness/swelling at site. Pressure dressing applied. Administered Medications: 05:20 Drug: Tylenol 1000 mg Route: PO; ke1 06:09 Follow up: Response: Pain is decreased ke1 07:26 Drug: bebtelovimah 1 vials Route: IV; Rate: bolus; Site: right antecubital; ll1 07:49 Follow up: Response: No adverse reaction; RASS: Alert and Calm (0); IV Status: ll1 Completed infusion; IV Intake: 2ml Medication: 12:30 VIS not applicable for this client. ll1 Intake: 07:49 IV: 2ml; Total: 2ml. [facility] Outcome: 06:57 Discharge ordered by . kdr 08:28 Patient left the ED. ll1 08:28 Discharged to home ambulatory. ll1 08:28 Condition: stable 08:28 Discharge instructions given to patient, Instructed on discharge instructions, follow up and referral plans. Demonstrated understanding of instructions, follow-up care. Signatures: Teja Amato MD MD kdr Lena Alston RN RN ll1 Sharon Milligan Kouassi, RN RN ke1 Corrections: (The following items were deleted from the chart) 05:53 05:07 Chief complaint: Patient states: I woke up at 2 am with headache and sweat, i ke1 have bee close to people who have covid ke1 07:48 07:47 Reassessment: Report received from commercial service technician RN.. [place] [id number]
[2022-02-04] MEDS ORDERED: BEBTELOVIMAB 175 MG/2 ML VIAL IV ONE (07:08)
[2022-02-04 08:34] VITALS: TEMP 98.5; O2SAT 100
[2022-02-04 08:36] VITALS: BP 111/69
== END 2022-02-04 08:28 | disposition home or self-care (01) ==
LOC: ER 04:49
DX: U07.1 COVID-19 (principal); F17.210 Nicotine dependence, cigarettes, uncomplicated
CPT/HCPCS: 87804 ×2; U0003

== ENCOUNTER 2023-03-20 20:18 | Emergency (ER) | payer OTHER ==
--- OUTSIDE RECORDS SUMMARY | 2023-03-20 20:41 | XMS REPORT | Continuity of Care Document ---
:1980 Author Organization [facility] t Address [address] [place] [id number] Care Team Providers Name Role Phone Soni Canada Primary Care Physician Argenis Ramos MD Attending Clinician Greer Blunt Attending Clinician GREER ROCHE Attending Clinician Unavailable CHAPARRO STANLEY Attending Clinician Unavailable Chaparro Stanley MD Attending Clinician Doctor Unassigned, [place] Attending Clinician Unavailable Denise Chauhan Attending Clinician DENISE MOYA Attending Clinician Unavailable Margaret Juarez Attending Clinician Margaret FRANZ Attending Clinician Unavailable Payers Payer Name Policy Type Policy Number Effective Date Expiration Date S ource Problems Condition Condition Condition Status Onset Resolution Last Treating Co mments Source Name Details Category Date Date Treatment Clinician Date No known No known Disease Unive rs active active ity of problems problems [facility] Allergies, Adverse Reactions, Alerts Allergy Allergy Status Severity Reaction(s) Onset Inactive Treating Comm ents Source Name Type Date Date Clinician NO KNOWN Drug Active Univers ALLERGIE Class ity of S [facility] Social History Social Habit Start Date Stop Date Quantity Comments Source History of tobacco Cigarette Smoker [facility] Exposure to 2021-12-29 2022-01-08 Not sure [facility] SARS-CoV-2 (event) 00:00:00 11:26:00 [facility] Tobacco use and 2021-05-18 2021-05-18 Never used Universit y of exposure 00:00:00 00:00:00 [facility] Alcohol intake 2019-07-15 2019-07-15 Ex-drinker [facility] 00:00:00 00:00:00 (finding) Hospital History of Social 2019-07-15 2019-07-[address] function 00:00:00 00:00:00 Hospital Cigarettes smoked 2019-06-13 2019-06-[address] current (pack per 00:00:00 00:00:00 Hospita l day) - Reported Sex Assigned At [birth year] [facility] 00:00:00 00:00:00 Hospital Smoking Status Start Date Stop Date Source Current every day smoker 2021-05-18 00:00:00 Uni versity [facility] Medications Ordered Filled Start Stop Current Ordering Indication Dosage Frequency Signature Comments Components Source Medication Medication Date Date Medication? Clinician (SIG) Name Name ondansetron 2021- No [id number] 4mg U nivers (ZOFRAN-ODT 01-08 ity of ) 17:45: 16:45 [place] disintegrat 00 :00 Medical ing tablet Branch 4 mg ondansetron 2- No [id number] 4mg 4 mg, Univers (ZOFRAN-ODT 01-08 Oral, ity of ) 17:45: 16:45 ONCE, 1 [place] disintegrat 00 :00 dose, On Medi debbie ing tablet 01/08/22 Bra nch 4 mg at 1245, Routine ondansetron Yes [id number] 4mg Take 1 Univers 4 mg 6-01 tablet by ity of disintegrat 00:00: mouth [place] ing tablet 00 every 8 Medica l (eight) Branch hours as needed for Nausea and Vomiting (N/V). ESCITALOPRA 2020-08 Yes Take by Uni vers M OXALATE 0-14 mouth ity of (LEXAPRO 15:25: daily. [place] ORAL) [facility] buprenorphi 2020-[address] 8 mg Univers ne 0-14 under the ity of HCl/naloxon 15:25: tongue. [place] as e HCl Medical (SUBOXONE Branch ) ESCITALOPRA 2020-08 Yes Take by Uni vers M OXALATE 0-14 mouth ity of (LEXAPRO 15:25: daily. [place] ORAL) 01 Medical Branch buprenorphi 2020-[address] 8 mg Univers ne 0-14 under the ity of HCl/naloxon 15:25: tongue. [place] as e HCl Medical (SUBOXONE Branch ) lisinopriL 2020-08 Yes One Tab po U nivers 5 mg tablet 0-13 each day ity of 00:00: for Blood [place] pressure Medical Branch lisinopriL 2020-08 Yes One Tab po U nivers 5 mg tablet 0-13 each day ity of 00:00: for Blood [place] pressure Medical Branch METHADONE 2020-08 Yes Take by Unive rs HCL 0-09 mouth ity of (METHADONE 13:46: daily. [place] ORAL) Medical [facility] METHADONE 2020-08 Yes Take by Unive rs HCL 0-09 mouth ity of (METHADONE 13:46: daily. [place] ORAL) [address] [place] [address] Vital Signs Vital Name Observation Time Observation Value Comments Source Systolic blood 2022-01-08 16:36:00 127 mm[Hg] Univer [facility] Diastolic blood 2022-01-08 16:36:00 75 mm[Hg] Unive rsity of [facility] Heart rate 2022-01-08 16:36:00 81 /min [facility] Body temperature 2022-01-08 16:36:00 36.56 Kimberly [facility] Respiratory rate 2022-01-08 16:36:00 18 /min [facility] Body height 2022-01-08 16:36:00 180.3 cm [facility] Body weight 2022-01-08 16:36:00 82.736 kg [facility] BMI 2022-01-08 16:36:00 25.44 kg/m2 [facility] Oxygen saturation in 2022-01-08 16:36:00 96 /min [facility] Arterial blood by [facility] Pulse oximetry Branch Systolic blood 2021-05-23 20:22:00 120 mm[Hg] Univer sity of pressure [facility] Diastolic blood 2021-05-23 20:22:00 80 mm[Hg] Unive rsity of pressure [facility] Heart rate 2021-05-23 20:22:00 103 /min [facility] Respiratory rate 2021-05-23 20:22:00 22 /min Univ ersity of [facility] Body height 2021-05-23 20:22:00 180.3 cm [facility] Body weight 2021-05-23 20:22:00 89.132 kg [facility] BMI 2021-05-23 20:22:00 27.41 kg/m2 [facility] Oxygen saturation in 2021-05-23 20:22:00 96 /min [facility] Arterial blood by [facility] Pulse oximetry Branch Procedures This patient has no known procedures. Encounters Start End Encounter Admission Attending Care Care Encounter Source Date/Time Date/Time Type Type Clinicians Facility Department ID 2022-01-08 2022-01-08 Urgent Argenis Ramos [facility] [id number] Univers 11:40:00 12:00:00 Care [facility] [id number] ity of [place] [id number] [place] as EDMUNDO?BLEA [phone] Wa jaci CASANOVAEY [address] MEDICAL OFFICE BUILDING 2022-01-08 2022-01-08 Outpatient R MELCHOR [facility] [id number] Univers 11:40:00 11:40:00 GREER knight o [facility] 2021-06-10 2021-06-10 Outpatient R JADEN [facility] [id number] Univers 14:00:00 14:00:00 ZACHSHADIA eugene o [facility] 2021-05-23 2021-05-23 [facility] [id number]..[id number] Univers 15:00:40 15:48:[facility] [id number] it[id number] [place] Profess[place] [phone] [place] jaci [place] [address] Branch Building 2021-05-23 2021-05-23 Outpatient R [facility] [id number] Univers 14:40:00 14:40:00 CHAPARRO knight o f [facility] 2021-05-23 2021-05-23 Orders Doctor CASSI [id number] Univers 00:00:00 00:00:00 Only Unassigned, BLANCA [id number] ity of [place] [facility] [id number] [place] as [phone] [facility] 009 Branch 2021-05-18 2021-05-18 Urgent [facility] [id number] Univers 13:35:01 14:21:28 Care Denise [facility] [id number] ity of [place] [id number] [place] as Edmnudo?Blea [phone] [address] Medical Office Building 2021-05-18 2021-05-18 [facility] [id number] Univers 13:40:00 13:40:00 DENISE xie [facility] 2020-06-27 2020-06-27 Emergency AmandaMargaret [facility] [id number] Univers 18:29:00 22:16:00 Bev Andrade [id number] i ty of [place] [id number] [place] [facility] [phone] [address] 2020-06-27 2020-06-27 Emergency Margaret Franz [facility] [id number] 18:29:00 22:16:00 Bev Andrade [id number] [place] [id number] [place] [id number] [facility] 2020-06-27 2020-06-27 Emergency X Margaret FRANZ [facility] ERT [id number] Univers 18:29:00 18:29:00 ity of [facility] Results This patient has no known results.
[2023-03-20 20:53] LABS: Absolute Lymphocytes (CBC) 2.5 K/uL (0.7-4.9); Hematocrit 42.2 % (39.6-49.0); Lymphocytes % 37.4 % (15.3-44.8); MCV 85.2 fL (80-100); MPV 7.2 fL (7.6-11.3); Platelets 195 thou/uL (152-406); RBC Red Blood Cell Count 4.95 M/uL (4.33-5.43)
[2023-03-20] MEDS ORDERED: NA CHLORIDE 0.9% 2,000 ML ONE (21:00)
[2023-03-20 21:13] LABS: ALT/SGPT 65 U/L (16-61); AST/SGOT 66 U/L (15-37); Albumin 3.7 g/dL (3.4-5.0); Alkaline Phosphatase 50 U/L (45-117); BUN Blood Urea Nitrogen 22 mg/dL (7-18); Bicarbonate 31 mEq/L (21-32); Bilirubin Total 0.3 mg/dL (0.2-1.0); Creatine Phosphokinase 145 U/L (39-308); Glomerular Filtration Rate 83 ml/min (=/>90); Glucose Level 123 mg/dL (74-106); Protein, Total 7.4 g/dL (6.4-8.2); Sodium Level 139 mEq/L (136-145)
[2023-03-20 21:29] LABS: Troponin High Sensitivity < 3.0 pg/mL (<58.9)
[2023-03-20 21:37] LABS: Specific Gravity > 1.030 (1.005-1.030); Urine Bacteria None Seen /HPF (<20); Urine Bilirubin NEGATIVE (Negative); Urine Blood Negative (Negative); Urine Clarity Turbid (Clear); Urine Color Light-Yellow (Yellow); Urine Glucose NEGATIVE (Negative); Urine Mucus Slight /HPF (None Seen); Urine Protein TRACE (Negative); Urine RBC <5 /HPF (None Seen); Urine Urobilinogen Normal (Normal)
--- NOTE | 2023-03-20 21:49 | ER ---
Nurse's Notes [facility] Name: Justice Rubio Age: 42 yrs Sex: Male : 1980 Arrival Date: 03/20/2023 Time: 20:18 Bed 2 Private MD: Diagnosis: Heat exhaustion, unspecified;Dehydration Presentation: 03/20 20:33 Chief complaint: Chief complaint: Patient states: Headache, shaking, vomiting today. nj1 Took some tylenol with no help. 20:33 Coronavirus screen: Vaccine status: Patient reports receiving the 2nd dose of the covid nj1 vaccine. Ebola Screen: Patient denies travel to an Ebola-affected area in the 21 days before illness onset. Initial Sepsis Screen: Does the patient meet any 2 criteria? No. Patient's initial sepsis screen is negative. Does the patient have a suspected source of infection? No. Patient's initial sepsis screen is negative. Risk Assessment: Do you want to hurt yourself or someone else? Patient reports no desire to harm self or others. Onset of symptoms was March 20, 2023. 20:33 Method Of Arrival: Wheelchair nj 20:33 Acuity: ADELIA 3 nj1 Historical: - Allergies: 20:43 No Known Allergies; nj1 - Home Meds: 20:43 Methadone unknown dose Oral [Active]; nj1 - PSHx: 20:43 Appendectomy; nj1 - Immunization history:: Client reports receiving the 2nd dose of the Covid vaccine. - Social history:: Smoking status: Patient reports the use of cigarette tobacco products, smokes one-half pack cigarettes per day. Screenin:45 [facility] ED Fall Risk Assessment (Adult) History of falling in the last 3 months, jb4 including since admission No falls in past 3 months (0 pts) Confusion or Disorientation No (0 pts) Score/Fall Risk Level 0 - 2 = Low Risk Oriented to surroundings, Maintained a safe environment. Abuse screen: Denies threats or abuse. Nutritional screening: No deficits noted. Tuberculosis screening: No symptoms or risk factors identified. Assessment: 20:40 General: Appears in no apparent distress. comfortable, Behavior is calm, cooperative, jb4 appropriate for age. Pain: Complains of pain in headache Pain does not radiate. Pain currently is 6 out of 10 on a pain scale. Neuro: Level of Consciousness is awake, alert, obeys commands, Oriented to person, place, time, situation. Cardiovascular: Patient's skin is warm and dry. Respiratory: Airway is patent Respiratory effort is even, unlabored, Respiratory pattern is regular, symmetrical. GI: No signs and/or symptoms were reported involving the gastrointestinal system. : No signs and/or symptoms were reported regarding the genitourinary system. EENT: No signs and/or symptoms were reported regarding the EENT system. Derm: Skin is intact, Skin is pink, warm \T\ dry. Musculoskeletal: Circulation, motion, and sensation intact. Range of motion: intact in all extremities. 21:35 Reassessment: Patient appears in no apparent distress at this time. Patient and/or jb4 family updated on plan of care and expected duration. Pain level reassessed. Patient is alert, oriented x 3, equal unlabored respirations, skin warm/dry/pink. Vital Signs: 20:33 BP 115 / 78; Pulse 74; Resp 18; Temp 97.8(O); Pulse Ox 98% on R/A; Weight 81.65 kg; nj1 Height 5 ft. 11 in. ; Pain 10/10; 21:45 BP 121 / 78; Pulse 64; Resp 16; Pulse Ox 100% on R/A; jb4 20:33 Body Mass Index 25.10 (81.65 kg, 180.34 cm) nj1 20:33 Pain Scale: Adult nj1 [place] Coma Score: 21:46 Eye Response: spontaneous(4). Motor Response: obeys commands(6). Verbal Response: zaire oriented(5). Total: 15. 21:50 Eye Response: spontaneous(4). Motor Response: obeys commands(6). Verbal Response: [place] oriented(5). Total: 15. ED Course: 20:21 Patient arrived in ED. jj6 20:32 Randall Carvajal MD is Attending Physician. zaire 20:38 Steve Dodd, RN is Primary Nurse. jb4 20:40 Initial lab(s) drawn, by me, sent to lab. Inserted saline lock: 20 gauge in right jb4 antecubital area, using aseptic technique. Blood collected. 20:44 Arm band placed on right wrist. nj1 20:46 Triage completed. nj1 21:45 Patient has correct armband on for positive identification. Bed in low position. Call jb4 light in reach. Side rails up X 1. Client placed on continuous cardiac and pulse oximetry monitoring. NIBP monitoring applied. 22:03 No provider procedures requiring assistance completed. IV discontinued, intact, jb4 bleeding controlled, No redness/swelling at site. Pressure dressing applied. Administered Medications: 20:53 Drug: NS 0.9% IV 1000 ml Route: IV; Rate: 1 bolus; Site: right antecubital; jb4 20:53 Drug: NS 0.9% IV 1000 ml Route: IV; Rate: 1 bolus; Site: right antecubital; jb4 Medication: 21:45 VIS not applicable for this client. jb4 Outcome: 21:49 Discharge ordered by . zaire 22:03 Discharged to home ambulatory. jb4 22:03 Condition: stable 22:03 Discharge instructions given to patient, Instructed on discharge instructions, follow up and referral plans. medication usage, Demonstrated understanding of instructions, follow-up care, medications, Prescriptions given X 1. 22:03 Patient left the ED. jb4 Signatures: Randall Carvajal MD MD cha Bryson, James, RN RN jb4 Pam [id number] Sommer Davis, RN RN nj1 Corrections: (The following items were deleted from the chart) 20:46 20:43 Chief complaint: nj1 nj1
--- NOTE | 2023-03-20 21:49 | EDPHYS ---
Physician Documentation [facility] Name: Justice Rubio Age: 42 yrs Sex: Male : 1980 Arrival Date: 03/20/2023 Time: 20:18 Bed 2 Private MD: DODIE Physician Randall Carvajal HPI: 03/20 21:45 This 42 yrs old Male presents to ER via Wheelchair with complaints of zaire Headache, Nausea/Vomiting, Heat Exposure. 21:45 The patient complains of pain to the forehead, left frontal area and right frontal zaire area. The patient describes the headache as aching, constant. Onset: The symptoms/episode began/occurred today. Associated signs and symptoms: Pertinent positives: dizziness, nausea, vomiting, weakness. Severity of symptoms: At its worst the pain was mild, in the emergency department the pain is unchanged. Headache History: The patient has had previous headaches and this one is similar to previous episodes. The patient has experienced similar episodes in the past, a few times. Historical: - Allergies: 20:43 No Known Allergies; nj1 - Home Meds: 20:43 Methadone unknown dose Oral [Active]; nj1 - PSHx: 20:43 Appendectomy; nj1 - Immunization history:: Client reports receiving the 2nd dose of the Covid vaccine. - Social history:: Smoking status: Patient reports the use of cigarette tobacco products, smokes one-half pack cigarettes per day. ROS: 21:46 Constitutional: Negative for fever, chills, and weight loss, Eyes: Negative for injury, zaire pain, redness, and discharge, ENT: Negative for injury, pain, and discharge, Neck: Negative for injury, pain, and swelling, Cardiovascular: Negative for chest pain, palpitations, and edema, Respiratory: Negative for shortness of breath, cough, wheezing, and pleuritic chest pain, Back: Negative for injury and pain, : Negative for injury, bleeding, discharge, and swelling, MS/Extremity: Negative for injury and deformity, Skin: Negative for injury, rash, and discoloration, Psych: Negative for depression, anxiety, suicide ideation, homicidal ideation, and hallucinations, Allergy/Immunology: Negative for hives, rash, and allergies, Endocrine: Negative for neck swelling, polydipsia, polyuria, polyphagia, and marked weight changes, Hematologic/Lymphatic: Negative for swollen nodes, abnormal bleeding, and unusual bruising. 21:46 Abdomen/GI: Positive for nausea and vomiting. 21:46 Neuro: Positive for dizziness, headache, weakness. Exam: 21:46 Constitutional: This is a well developed, well nourished patient who is awake, alert, zaire and in no acute distress. Head/Face: Normocephalic, atraumatic. Eyes: Pupils equal round and reactive to light, extra-ocular motions intact. Lids and lashes normal. Conjunctiva and sclera are non-icteric and not injected. Cornea within normal limits. Periorbital areas with no swelling, redness, or edema. ENT: Nares patent. No nasal discharge, no septal abnormalities noted. Tympanic membranes are normal and external auditory canals are clear. Oropharynx with no redness, swelling, or masses, exudates, or evidence of obstruction, uvula midline. Mucous membranes moist. Neck: Trachea midline, no thyromegaly or masses palpated, and no cervical lymphadenopathy. Supple, full range of motion without nuchal rigidity, or vertebral point tenderness. No Meningismus. Chest/axilla: Normal chest wall appearance and motion. Nontender with no deformity. No lesions are appreciated. Cardiovascular: Regular rate and rhythm with a normal S1 and S2. No gallops, murmurs, or rubs. Normal PMI, no JVD. No pulse deficits. Respiratory: Lungs have equal breath sounds bilaterally, clear to auscultation and percussion. No rales, rhonchi or wheezes noted. No increased work of breathing, no retractions or nasal flaring. Abdomen/GI: Soft, non-tender, with normal bowel sounds. No distension or tympany. No guarding or rebound. No evidence of tenderness throughout. Back: No spinal tenderness. No costovertebral tenderness. Full range of motion. Skin: Warm, dry with normal turgor. Normal color with no rashes, no lesions, and no evidence of cellulitis. MS/ Extremity: Pulses equal, no cyanosis. Neurovascular intact. Full, normal range of motion. Neuro: Awake and alert, GCS 15, oriented to person, place, time, and situation. Cranial nerves II-XII grossly intact. Motor strength 5/5 in all extremities. Sensory grossly intact. Cerebellar exam normal. Normal gait. Psych: Awake, alert, with orientation to person, place and time. Behavior, mood, and affect are within normal limits. 21:51 ECG was reviewed by the Attending Physician. [facility] Vital Signs: 20:33 BP 115 / 78; Pulse 74; Resp 18; Temp 97.8(O); Pulse Ox 98% on R/A; Weight 81.65 kg; nj1 Height 5 ft. 11 in. ; Pain 10/10; 21:45 BP 121 / 78; Pulse 64; Resp 16; Pulse Ox 100% on R/A; jb4 20:33 Body Mass Index 25.10 (81.65 kg, 180.34 cm) [facility] 20:33 Pain Scale: Adult nj1 [place] Coma Score: 21:46 Eye Response: spontaneous(4). Motor Response: obeys commands(6). Verbal Response: [place] oriented(5). Total: 15. 21:50 Eye Response: spontaneous(4). Motor Response: obeys commands(6). Verbal Response: [place] oriented(5). Total: 15. MDM: 20:32 Patient medically screened. [facility] 21:50 Differential diagnosis: Nonspecific abd pain, gastritis, viral gastroenteritis, zaire gastroenteritis, hyponatremia, migraine, tension headache. Differential Diagnosis altered mental status. Data reviewed: vital signs, nurses notes, lab test result(s), EKG. Consideration of Admission/Observation Escalation of care including admission/observation considered. I considered the following discharge prescriptions or medication management in the emergency department Medications were administered in the Emergency Department. See MAR. Test considered but Not performed: CT: no ct head. Care significantly affected by the following chronic conditions: none. Counseling: I had a detailed discussion with the patient and/or guardian regarding: the historical points, exam findings, and any diagnostic results supporting the discharge/admit diagnosis, lab results, the need for outpatient follow up, for definitive care, a family practitioner. 03/20 20:34 Order name: CBC with Diff; Complete Time: 21:40 [facility] 03/20 20:34 Order name: Comprehensive Metabolic Panel; Complete Time: 21:40 [facility] 03/20 20:34 Order name: CK; Complete Time: 21:40 [facility] 03/20 20:34 Order name: Urinalysis w/ reflexes; Complete Time: 21:40 [facility] 03/20 20:34 Order name: Troponin HS; Complete Time: 21:40 [facility] 03/20 20:34 Order name: EKG; Complete Time: 20:35 [facility] 03/20 20:34 Order name: EKG - Nurse/Tech; Complete Time: 21:04 [facility] EC:51 Rate is 64 beats/min. Rhythm is regular. QRS [place] is Normal. [place] interval is normal. QRS zaire interval is normal. QT interval is normal. No Q waves. T waves are Normal. No ST changes noted. Clinical impression: Normal ECG and No evidence of ischemia. Interpreted by me. Reviewed by me. Administered Medications: 20:53 Drug: NS 0.9% IV 1000 ml Route: IV; Rate: 1 bolus; Site: right antecubital; jb4 20:53 Drug: NS 0.9% IV 1000 ml Route: IV; Rate: 1 bolus; Site: right antecubital; jb4 Disposition Summary: 03/20/23 21:49 Discharge Ordered Location: Home zaire Problem: new z[place] Symptoms: have improved zaire Condition: Stable zaire Diagnosis - Heat exhaustion, unspecified zaire - Dehydration zaire Followup: zaire - With: Private Physician - When: 2 - 3 days - Reason: Recheck today's complaints, Continuance of care, Re-evaluation by your physician Discharge Instructions: - Dehydration, Adult zaire - Heat Exhaustion zaire - Dehydration, Adult, [id number] zaire - Rehydration, Adult zaire - Preventing Heat Exhaustion, Adult zaire - Discharge Summary Sheet jb4 Forms: - Medication Reconciliation Form [facility] - Thank You Letter [facility] - Antibiotic Education zaire - Prescription Opioid Use zaire - Patient Portal Instructions [facility] - Leadership Thank You Letter [facility] - Work release form jb4 Prescriptions: - ondansetron 4 mg Oral Tablet,disintegrating - take 1 tablet by ORAL route every 8 hours; 20 tablet; Refills: 0, Product zaire Selection Permitted Signatures: Dispatcher [employer] EDRandall Srinivasan MD MD cha Bryson, James, RN RN jb4 Sommer Daivs RN RN nj1
[2023-03-20 22:21] VITALS: TEMP 97.8
[2023-03-20 22:23] VITALS: BP 121/78; O2SAT 100
--- NOTE | 2023-03-22 15:31 | EKG ---
Test Date: 2023-03-20 Test Time: 21:02:20 Basketball Referee: DENIS MEASUREMENT RESULTS: Intervals: Rate: 64 TN: 162 QRSD: 100 QT: 408 QTc: 420 [place]: P: 15 TN: 162 QRS: 56 T: 46 INTERPRETIVE STATEMENTS: Normal sinus rhythm Normal ECG Compared to ECG 01/21/2021 21:11:12 Sinus tachycardia no longer present Electronically Signed On 03-22-23 15:28:51 CDT by Matthias Coto
== END 2023-03-20 22:03 | disposition home or self-care (01) ==
LOC: ER 20:18
DX: T67.5XXA Heat exhaustion, unspecified, initial encounter (principal); E86.0 Dehydration; F17.210 Nicotine dependence, cigarettes, uncomplicated
CPT/HCPCS: 93005; 85025; 81001; 36415; 82550; 84484; 80053; 99284; J7030